=== PATIENT | male | born 1960 | race African-American/Black ===

== ENCOUNTER 2019-02-21 03:11 | Inpatient (IN) | payer OTHER ==
[~2019-02-21] VITALS: Ht 188 cm; Wt 121.1 kg
[2019-02-21 03:16] VITALS: Ht 188 cm; Wt 121.1 kg
[2019-02-21 04:14] LABS: CALCIUM 8.8 mg/dL (8.5-10.1); CREATININE SERUM 1.8 mg/dL (0.7-1.3); POTASSIUM SERUM 3.6 mmol/L (3.5-5.1)
[2019-02-21 04:29] LABS: BASOPHIL % 0.3 % (0-2); PLATELET COUNT 371 x10^3mcL (130-400); RED CELL DISTRIBUTION WIDTH 13.5 % (11.5-14.5)
[2019-02-21 04:30] LABS: BILIRUBIN TOTAL 0.29 mg/dL (0.20-1.00); C REACTIVE PROTEIN 2.2 mg/dL (<=0.9); TOTAL PROTEIN, SERUM 6.6 g/dL (6.4-8.2)
[2019-02-21 04:34] LABS: ALBUMIN 2.4 g/dL (3.4-5.0)
[2019-02-21] MEDS ORDERED: LANTUS SOLOS100 U/M1 SQ (04:37)
[2019-02-21 04:48] LABS: UA SPECIFIC GRAVITY 1.025 (1.005-1.035); microscopic required? YES; urine erythrocyte 1+ (NEGATIVE)
[2019-02-21 05:03] LABS: AMPHETAMINE QUAL UR POSITIVE (See below)
[2019-02-21 05:38] LABS: ERYTHROCYTE SED RATE 76 mm/hr (0-20)
[2019-02-21 08:11] VITALS: BP 150/73
[2019-02-21 09:39] LABS: MAGNESIUM 1.9 mg/dL (1.8-2.4); PHOSPHOROUS 3.5 mg/dL (2.5-4.9)
[2019-02-21 16:30] VITALS: BP 154/88
[2019-02-21 20:53] VITALS: BP 161/88
[2019-02-22 05:20] VITALS: BP 158/89
[2019-02-22 06:22] LABS: CARBON DIOXIDE 27.5 mmol/L (21-32); CREATININE SERUM 1.7 mg/dL (0.7-1.3); MAGNESIUM 1.6 mg/dL (1.8-2.4); PHOSPHOROUS 3.4 mg/dL (2.5-4.9); POTASSIUM SERUM 3.7 mmol/L (3.5-5.1)
[2019-02-22 06:24] LABS: BASOPHIL % 0.3 % (0-2); PLATELET COUNT 359 x10^3mcL (130-400); RED CELL DISTRIBUTION WIDTH 13.8 % (11.5-14.5)
[2019-02-22 08:30] VITALS: BP 151/92
[2019-02-22 16:16] VITALS: BP 166/91
[2019-02-22 17:35] VITALS: BP 158/91
[2019-02-22 21:02] VITALS: BP 151/84
[2019-02-23 05:37] VITALS: BP 153/85
[2019-02-23 06:23] LABS: BASOPHIL % 0.4 % (0-2); PLATELET COUNT 355 x10^3mcL (130-400); RED CELL DISTRIBUTION WIDTH 13.5 % (11.5-14.5)
[2019-02-23 06:36] LABS: CARBON DIOXIDE 25.8 mmol/L (21-32); CREATININE SERUM 1.6 mg/dL (0.7-1.3); MAGNESIUM 1.7 mg/dL (1.8-2.4); POTASSIUM SERUM 3.4 mmol/L (3.5-5.1)
[2019-02-23 09:21] VITALS: BP 161/87
[2019-02-23 12:12] VITALS: BP 147/95
[2019-02-23 17:25] VITALS: BP 157/85
[2019-02-23 20:46] VITALS: BP 149/88
[2019-02-24 05:39] VITALS: BP 133/86
[2019-02-24 05:45] LABS: BASOPHIL % 0.5 % (0-2); PLATELET COUNT 362 x10^3mcL (130-400); RED CELL DISTRIBUTION WIDTH 13.8 % (11.5-14.5)
[2019-02-24 06:13] LABS: CALCIUM 8.2 mg/dL (8.5-10.1); CARBON DIOXIDE 25.6 mmol/L (21-32); CREATININE SERUM 1.7 mg/dL (0.7-1.3); MAGNESIUM 1.9 mg/dL (1.8-2.4); PHOSPHOROUS 3.3 mg/dL (2.5-4.9); POTASSIUM SERUM 3.4 mmol/L (3.5-5.1)
[2019-02-24 09:24] VITALS: BP 156/95
[2019-02-24 16:14] VITALS: BP 162/88
[2019-02-24 20:36] VITALS: BP 159/90
[2019-02-25 04:46] LABS: BASOPHIL % 0.4 % (0-2); PLATELET COUNT 377 x10^3mcL (130-400); RED CELL DISTRIBUTION WIDTH 13.8 % (11.5-14.5)
[2019-02-25 04:55] LABS: CALCIUM 8.3 mg/dL (8.5-10.1); CARBON DIOXIDE 25.6 mmol/L (21-32); CREATININE SERUM 1.6 mg/dL (0.7-1.3); MAGNESIUM 1.9 mg/dL (1.8-2.4); POTASSIUM SERUM 3.5 mmol/L (3.5-5.1)
[2019-02-25 05:48] VITALS: BP 163/96
[2019-02-25 08:31] VITALS: BP 165/74
[2019-02-25] MEDS ORDERED: NOR10 PO ×2 (11:41→11:46)
[2019-02-25] MEDS ORDERED: NORCO1 TA1 PO (11:42)
[2019-02-25] MEDS ORDERED: AUGMENTIN 875-1 EACH PO (11:45)
[2019-02-25 13:35] VITALS: BP 141/67; BP 165/74
[2019-02-25 15:13] VITALS: BP 179/94
[2019-02-25 17:09] VITALS: BP 141/67
[2019-02-25 17:12] VITALS: BP 141/67
== END 2019-02-25 17:49 | disposition home or self-care (01) | DRG 305 ==
LOC: ED 03:11 → MU 06:26
PROVIDERS: Emergency Medicine; Family Medicine; Podiatrist Foot & Ankle Surgery; ADMIT Internal Medicine
PROC: 0Y6M0Z9 Detachment at Right Foot, Partial 1st Ray, Open Approach (ICD-10-PCS; principal; 2019-02-21 11:15)
DX: E11.69 Type 2 diabetes mellitus with other specified complication (principal); N17.0 Acute kidney failure with tubular necrosis; E43 Unspecified severe protein-calorie malnutrition; M86.8X7 Other osteomyelitis, ankle and foot; E11.65 Type 2 diabetes mellitus with hyperglycemia; E83.42 Hypomagnesemia; E11.22 Type 2 diabetes mellitus with diabetic chronic kidney disease; E11.621 Type 2 diabetes mellitus with foot ulcer; E11.42 Type 2 diabetes mellitus with diabetic polyneuropathy; L03.115 Cellulitis of right lower limb; F12.10 Cannabis abuse, uncomplicated; B35.1 Tinea unguium; N18.9 Chronic kidney disease, unspecified; I12.9 Hypertensive chronic kidney disease with stage 1 through stage 4 chronic kidney disease, or unspecified chronic kidney disease; M71.21 Synovial cyst of popliteal space [Baker], right knee; E87.6 Hypokalemia; M17.11 Unilateral primary osteoarthritis, right knee; F15.10 Other stimulant abuse, uncomplicated; F17.210 Nicotine dependence, cigarettes, uncomplicated; L97.511 Non-pressure chronic ulcer of other part of right foot limited to breakdown of skin; Z68.34 Body mass index [BMI] 34.0-34.9, adult; Z79.4 Long term (current) use of insulin; Z79.84 Long term (current) use of oral hypoglycemic drugs; Z90.49 Acquired absence of other specified parts of digestive tract; Z80.51 Family history of malignant neoplasm of kidney
CPT/HCPCS: 82962; J0696; J1815; J1885; J1940; J2250; J2543; J2704; J3010; J3370; J3490; J7030; J7050; Q0092